=== PATIENT | male | born 1975 | race Caucasian/White ===

== ENCOUNTER 2021-05-27 11:15 | Outpatient (CLI) | payer OTHER ==
--- NOTE | 2021-05-27 11:53 | XRAY Report ---
PROCEDURE: Wrist 3 View RT INDICATIONS: OTHER SPECIFIED SPRAIN OF RIGHT WRIST TECHNIQUE: 3 views of the wrist were acquired. COMPARISON: None FINDINGS: Bones: No fractures or dislocations. Mild osteoarthritic changes along radial aspect of right wrist are seen. No suspicious bony lesions. Scaphoid view: Scaphoid is intact. Soft tissues: No suspicious soft tissue calcifications. 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 No fracture or dislocation. No suspicious intraosseous lesion. Reviewed by: Jose Peraza MD on 05/27/2021 11:52 AM PST Approved by: Jose Peraza MD on 05/27/2021 11:52 AM PST Station ID: [id number]
== END 2021-05-27 11:16 | disposition home or self-care (01) ==
LOC: DI.S 11:15
PROVIDERS: ATTEND Emergency Medicine
DX: S63.591A Other specified sprain of right wrist, initial encounter (principal); M19.031 Primary osteoarthritis, right wrist